=== PATIENT | female | born 1950 | race Caucasian/White ===

== ENCOUNTER → 2017-02-11 | Outpatient (CLI) | payer OTHER, BC ==
[~2017-02-11] MED LIST: AMOX500C3 PO; ASPEC325 PO; CALCTAB5 PO; CLR10 PO; FRRG PO; HYDR25TA5 PO; LOVA20TA4 PO; METO25TA56 PO; MULT-513 PO; OMEP40CA PO; SYMIN160 INH
[2017-02-11 14:11] LABS: ALT/SGPT 29 U/L (12-78); AST/SGOT 20 U/L (15-37); BLOOD UREA NITROGEN 14 mg/dl (7-18); CALCIUM 9.2 mg/dl (8.5-10.1); CARBON DIOXIDE 31 mmol/L (21-32); CHOLESTEROL 182 mg/dl (0-200); CREATININE 0.73 mg/dl (0.60-1.20); GLUCOSE 106 mg/dl (70-99); POTASSIUM 3.7 mmol/L (3.5-5.1); SODIUM 139 mmol/L (136-145)
[2017-02-11 14:13] LABS: LDL CHOLESTEROL CALCULATED 117 mg/dl
== END | disposition home or self-care (01) ==
LOC: C.LABMFLN 09:34
PROVIDERS: ATTEND Family Medicine
DX: E78.5 Hyperlipidemia, unspecified (principal); I10 Essential (primary) hypertension

== ENCOUNTER → 2017-10-03 | Outpatient (CLI) | payer OTHER, BC ==
[2017-10-03 12:47] LABS: ALT/SGPT 27 U/L (12-78); AST/SGOT 24 U/L (15-37); BLOOD UREA NITROGEN 15 mg/dl (7-18); CALCIUM 8.6 mg/dl (8.5-10.1); CARBON DIOXIDE 28 mmol/L (21-32); CHOLESTEROL 179 mg/dl (0-200); CREATININE 0.69 mg/dl (0.60-1.20); GLUCOSE 104 mg/dl (70-99); LDL CHOLESTEROL CALCULATED 117 mg/dl; POTASSIUM 3.6 mmol/L (3.5-5.1); SODIUM 141 mmol/L (136-145)
== END | disposition home or self-care (01) ==
LOC: C.LABMFLN 08:32
PROVIDERS: ATTEND Family Medicine
DX: E78.5 Hyperlipidemia, unspecified (principal); I10 Essential (primary) hypertension